=== PATIENT | female | born 2000 | race Caucasian/White ===

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

== ENCOUNTER 2019-02-15 19:13 | Emergency (ER) | payer MEDICAID, OTHER ==
[~2019-02-15] VITALS: Ht 165.1 cm; Wt 63.5 kg
--- NOTE | 2019-02-15 19:40 | NUR ---
PT C/O LEFT HIP PAIN AMBULATORY WITH STABLE GAIT ABLE TO PROVIDE URINE SAMPLE PT NAD SIDERAILSX2 UP, BED AT LOWEST POSITION
[2019-02-15 20:03] LABS: *BILIRUBIN,URIN NEGATIVE (NEGATIVE); *CLARITY,URINE SLIGHTLY CLOUDY (CLEAR); *COLOR,URINE YELLOW (YELLOW); *KETONES,URINE NEGATIVE (NEGATIVE); *UROBILINOGEN,URINE 0.2 E.U./dl (NORMAL); LEUKOCYTE ESTERASE ,URINE TRACE (NEGATIVE); NITRITE, URINE NEGATIVE (NEGATIVE); PH,URINE 7.5 (5.0-8.0); UGLUCOSE NEGATIVE (NEGATIVE)
[2019-02-15 20:09] LABS: *BLOOD, URINE TRACE (NEGATIVE); *URINE HCG, QUAL NEGATIVE (NEGATIVE)
[2019-02-15 20:19] LABS: RBC,URINE 0-3 /HPF (0-3)
[2019-02-15 20:20] LABS: BACTERIA,URINE FEW /HPF (NONE SEEN); SQUAMOUS EPITHELIAL CELL,UR MANY /HPF (NONE SEEN)
--- NOTE | 2019-02-15 20:57 | NUR ---
Patient discharged to home in stable conditon. Written and verbal after care instructions given. Patient verbalizes understanding of instructions. ambulatory w/ stable gait all belongings w/ pt
[2019-02-15 21:50] VITALS: BP 109/72
== END 2019-02-15 20:55 | disposition home or self-care (01) ==
LOC: ER 19:18
DX: S70.02XA Contusion of left hip, initial encounter (principal); Z90.49 Acquired absence of other specified parts of digestive tract; W18.39XA Other fall on same level, initial encounter; Y93.89 Activity, other specified; Y92.89 Other specified places as the place of occurrence of the external cause; Y99.8 Other external cause status
CPT/HCPCS: 36415; 72170; 84703; A4663

== ENCOUNTER 2019-04-20 17:55 | Inpatient (IN) | payer OTHER ==
[~2019-04-20] VITALS: Ht 165.1 cm; Wt 64.0 kg
--- NOTE | 2019-04-20 18:00 | NUR ---
PATIENT HERE WITH HER BOYFRIEND. SHE IS HAVING CHILLS, BODY ACHES, SHE IS TACHYCARDIC. PLACED ON A MONITOR. IV PLACED.
[2019-04-20] MEDS ORDERED: IV NS 1000 ML 1,000 ML IV ONE (18:45)
[2019-04-20] MEDS ORDERED: METOCLOPRAMIDE HCL 10 MG/2 ML VIAL IV ONE (18:45)
[2019-04-20] MEDS ORDERED: IV NORMAL SALINE 1000 ML BAG IV ONE (18:45)
[2019-04-20] MEDS ORDERED: ACETAMINOPHEN ES 500 MG TABLET PO ONE (18:45)
[2019-04-20] MEDS ORDERED: ACETAMINOPHEN ES 500 MG TABLET ONE (18:52)
[2019-04-20] MEDS ORDERED: diphenhydrAMINE 50 MG/1 ML VIAL ONE (18:52)
[2019-04-20] MEDS ORDERED: METOCLOPRAMIDE HCL 10 MG/2 ML VIAL ONE (18:53)
[2019-04-20 18:57] LABS: BASOPHILS % (AUTO) 0.5 % (0.0-2.0); EOSINOPHILS # (AUTO) 0.1 K/uL (0.0-0.7); EOSINOPHILS % (AUTO) 0.8 % (0.0-7.0); HEMATOCRIT 38.8 % (31.2-41.9); HEMOGLOBIN 12.7 g/dL (10.9-14.3); LYMPHOCYTES # (AUTO) 0.7 K/uL (20.0-40.0); LYMPHOCYTES % (AUTO) 8.6 % (20.5-74.5); MEAN CORPUSCULAR HEMOGLOBIN 26.7 uug (24.7-32.8); MEAN CORPUSCULAR HGB CONC 33 g/dL (32.3-35.6); MEAN CORPUSCULAR VOLUME 81.9 fL (75.5-95.3); MONOCYTES # (AUTO) 0.7 K/uL (2.0-10.0); MONOCYTES % (AUTO) 9.1 % (0-11); NEUTROPHILS # (AUTO) 6.7 K/uL (1.8-8.9); PLATELET COUNT (AUTO) 263 K/uL (179-408); RED BLOOD CELL COUNT(AUTO) 4.74 MIL/uL (3.63-4.92); WHITE BLOOD COUNT (AUTO) 8.2 K/uL (3.8-11.8)
[2019-04-20] MEDS: diphenhydrAMINE 25 MG CAP PO ONE ×2 (19:01→19:09)
[2019-04-20 19:03] LABS: CREATININE 0.8 mg/dL (0.6-1.3); POTASSIUM 3.7 mmol/L (3.5-5.1)
[2019-04-20 19:05] LABS: *BILIRUBIN,URIN NEGATIVE (NEGATIVE); *BLOOD, URINE 2+ (NEGATIVE); *KETONES,URINE 2+ (NEGATIVE); *UROBILINOGEN,URINE 0.2 E.U./dl (NORMAL); LEUKOCYTE ESTERASE ,URINE TRACE (NEGATIVE); NITRITE, URINE NEGATIVE (NEGATIVE); UGLUCOSE NEGATIVE (NEGATIVE)
[2019-04-20 19:07] LABS: *CLARITY,URINE HAZY (CLEAR); *COLOR,URINE LIGHT YELLOW (YELLOW)
[2019-04-20 19:09] LABS: BILIRUBIN,DIRECT 0.1 mg/dL (0.0-0.2); BILIRUBIN,TOTAL 0.7 mg/dL (0.2-1.0); TOTAL PROTEIN, SERUM 8.5 g/dL (6.4-8.2)
[2019-04-20 19:09] LABS: *URINE HCG, QUAL NEGATIVE (NEGATIVE)
[2019-04-20 19:11] LABS: BACTERIA,URINE FEW /HPF (NONE SEEN); SQUAMOUS EPITHELIAL CELL,UR FEW /HPF (NONE SEEN)
--- NOTE | 2019-04-20 19:13 | NUR ---
HAND OFF REPORT GIVEN TO NIGHT RN
--- NOTE | 2019-04-20 19:18 | NUR ---
Assumed care of patient from day shift RN Christinei.
[2019-04-20] MEDS ORDERED: OSELTAMIVIR PHOSPHATE 75 MG CAPSULE ONE (19:38)
--- NOTE | 2019-04-20 19:38 | NUR ---
Dr Milligan at bedside.
[2019-04-20] MEDS ORDERED: VANCOMYCIN 1G/D5W 200 ML PIGGYBACK IV ONE (19:45)
[2019-04-20] MEDS ORDERED: OSELTAMIVIR PHOSPHATE 75 MG CAPSULE PO ONE (19:45)
[2019-04-20] MEDS ORDERED: PIPERACILLIN SODIUM/TAZOBACTAM 3.375 G in IV DEXTROSE 5% 50 ML IV ONE (19:45)
[2019-04-20] MEDS ORDERED: PIPERACILLIN/TAZOBACTAM/D5W 50 ML IV ONE (19:56)
[2019-04-20] MEDS ORDERED: VANCOMYCIN IV 200 ML ONE (20:03)
--- NOTE | 2019-04-20 20:11 | NUR ---
Patient refused to US. Dr Chel lawrence.
[2019-04-20] MEDS ORDERED: IV LACTATED RINGERS SOLUTION 1,000 ML IV ONE (20:15)
[2019-04-20] MEDS ORDERED: ONDANSETRON 4 MG/2 ML VIAL IV ONE (20:15)
--- NOTE | 2019-04-20 20:15 | NUR ---
Epic panel call placed, spoke to Sharif stated she will get a hold of Dr. Helton for admitting.
[2019-04-20] MEDS ORDERED: ONDANSETRON 4 MG/2 ML VIAL ONE (20:17)
--- NOTE | 2019-04-20 20:39 | NUR ---
Dr Milligan on panel call with Dr. Helton. Patient accepted for admission to tele, Dx Sepsis.
[2019-04-20] MEDS ORDERED: IOHEXOL 300MG/ML 100 ML INFUS..BTL ONE (20:55)
[2019-04-20] MEDS ORDERED: IV NORMAL SALINE 0 ML IV ONE (20:55)
[2019-04-20] MEDS ORDERED: SWABABLE VALVE TRANSFER SET EA MC ONE (20:55)
--- NOTE | 2019-04-20 21:15 | NUR ---
REPORT GIVEN TO DIRECTOR OF AGRONOMY NEYMAR REGARDING PATIENT CONDITION AND STATES UNDERSTANDING. PATIENT TO BE ADMITTED TO TELE FLOOR ROOM 315 UNDER Jesus HARPER
--- NOTE | 2019-04-20 21:33 | NUR ---
PATIENT REFUSING CT. DR GRIMM AWARE AND ALSO INFORMED CAMERON BLACKOMN.
--- NOTE | 2019-04-20 21:35 | NUR ---
PATIENT TRANSPORTED VIA GURNEY TO TELE FLOOR BY JULIANA MODI ON ROOM 315.
[2019-04-20 21:50] VITALS: BP 114/52
[2019-04-20] MEDS ORDERED: ONDANSETRON 4 MG/2 ML VIAL IV PRN (22:00)
[2019-04-20] MEDS ORDERED: Z GUARD REMEDY PASTE 57 GM TUBE TOP PRN (22:00)
[2019-04-20] MEDS ORDERED: ACETAMINOPHEN 325 MG TABLET PO PRN (22:00)
[2019-04-20] MEDS: IBUPROFEN 400 MG TABLET PO PRN (22:28)
[2019-04-20] MEDS: IV NS 1000 ML 1,000 ML IV PRN (22:28)
[2019-04-21] MEDS ORDERED: VANCOMYCIN IV 500 MG in IV DEXTROSE 5% 100 ML IV ONE ×2
[2019-04-21] MEDS ORDERED: VANCOMYCIN HCL 500 MG VIAL ONE (00:10)
[2019-04-21] MEDS ORDERED: PIPERACILLIN SODIUM/TAZO 3.375 GM VIAL ONE (00:10)
[2019-04-21 00:16] VITALS: BP 102/41
--- NOTE | 2019-04-21 01:00 | NUR ---
PT TO DISCHARGE.WAITING FOR ORDER. PT IN NO ACUTE DISTRESS. SAFETY ND COMFORT PROVIDED. WILL CONTINUE TO MONITOR. Addendum: 04/21/19 at 1633 by VENITA WALLACE RN WRONG TIME DOCUMENTATION
[2019-04-21] MEDS ORDERED: PIPERACILLIN SODIUM/TAZOBACTAM 3.375 G in IV DEXTROSE 5% 50 ML IV ONE (02:00)
[2019-04-21 04:10] VITALS: BP 96/40
--- NOTE | 2019-04-21 05:52 | NUR ---
Patient complained of headache when she arrived at the room, it was relieved by ibuprofen PO. Attended all needs. Ensured safety and comfort. No other complaints were made throughout the shift. Patient refused CT Scan of abdomen/pelvis, Dr. Valdez Helton made aware last night. No other untoward events noted. Will endorse accordingly.
[2019-04-21 06:32] LABS: BASOPHILS % (AUTO) 0.9 % (0.0-2.0); EOSINOPHILS % (AUTO) 1.2 % (0.0-7.0); HEMATOCRIT 32.6 % (31.2-41.9); HEMOGLOBIN 10.7 g/dL (10.9-14.3); LYMPHOCYTES # (AUTO) 0.5 K/uL (20.0-40.0); LYMPHOCYTES % (AUTO) 12.2 % (20.5-74.5); MEAN CORPUSCULAR HEMOGLOBIN 26.6 uug (24.7-32.8); MEAN CORPUSCULAR HGB CONC 33 g/dL (32.3-35.6); MEAN CORPUSCULAR VOLUME 81.3 fL (75.5-95.3); MONOCYTES # (AUTO) 0.4 K/uL (2.0-10.0); MONOCYTES % (AUTO) 10.4 % (0-11); NEUTROPHILS % (AUTO) 75.3 % (31.5-64.5); PLATELET COUNT (AUTO) 192 K/uL (179-408); RED BLOOD CELL COUNT(AUTO) 4.02 MIL/uL (3.63-4.92)
[2019-04-21 06:39] LABS: THYROID STIMULATING HORMONE 4.076 mIU/mL (0.358-3.740)
[2019-04-21 06:45] LABS: ALANINE AMINOTRANSFERASE 15 U/L (14-59); ALKALINE PHOSPHATASE 41 U/L (50-136); ASPARTATE AMINOTRANSFERASE 14 U/L (15-37); BILIRUBIN,TOTAL 0.5 mg/dL (0.2-1.0); CARBON DIOXIDE 24 mmol/L (21-32); CHLORIDE 110 mmol/L (98-107); CREATININE 0.7 mg/dL (0.6-1.3); GLUCOSE 87 mg/dL (74-106); HDL CHOLESTEROL 43 mg/dL (40-60); MAGNESIUM 1.8 mg/dL (1.8-2.4); PHOSPHOROUS 4.9 mg/dL (2.5-4.9); POTASSIUM 3.8 mmol/L (3.5-5.1); TRIGLYCERIDES < 15 MG/DL (30-150); UREA NITROGEN, BLOOD 9 mg/dL (7-18)
[2019-04-21 07:15] LABS: CHOLESTEROL 105 mg/dL (<200)
[2019-04-21] MEDS: IBUPROFEN 400 MG TABLET PO PRN (07:39)
[2019-04-21] MEDS: IV NS 1000 ML 1,000 ML IV PRN (07:48)
--- NOTE | 2019-04-21 09:31 | NUR ---
Clinical Pharmacy Note: Vancomycin Dosing per Pharmacy Subjective: Vancomycin IV to start on this 19 yo female patient for severe sepsis Objective: BUN 9/Scr 0.7 WBC 4.2 Temperature 97.9 ht 165 cm wt 64 kg Assessment/Plan: patient received vanco 1gm IV x1 in ED on 04/20 at 2030 & night pharmacy also ordered additional 500mg at 0100 on 04/21. Will start vancomycin 1000mg IVPB Q10hr for a predicted vancomycin steady state trough level of 15 mcg/ml. 1st dose today at 1100. Will draw a vancomycin trough level prior to the 4th dose of vancomycin (not yet ordered). Will monitor renal function & adjust the dose if needed. Will follow daily.
[2019-04-21] MEDS ORDERED: FERR325T28 PO (09:35)
[2019-04-21] MEDS ORDERED: PIPERACILLIN SODIUM/TAZOBACTAM 4.5 G in IV DEXTROSE 5% 50 ML IV SCH (10:00)
[2019-04-21] MEDS ORDERED: VANCOMYCIN IV 1,000 MG in IV DEXTROSE 5% 250 ML IV SCH (11:00)
[2019-04-21 12:30] VITALS: BP 111/49
--- NOTE | 2019-04-21 13:00 | NUR ---
PT TO DISCHARGE.WAITING FOR ORDER. PT IN NO ACUTE DISTRESS. SAFETY ND COMFORT PROVIDED. WILL CONTINUE TO MONITOR.
--- NOTE | 2019-04-21 16:10 | NUR ---
PT DISCHARGE. PT GIVEN DISCHARGE INSTRUCTION. PT UNDERSTAND IT WELL. PT DISCHARGE PACKET GIVEN. PT ID BAND AND IV REMOVED. TOLDF THE PT AND FATHER THAT THE DOCTOR WILL DO ELECTRONIC PRESCRIPTION SO JUST WAIT FOR. CALL THE PHARMACY FIRST BEFORE GOING . PT IN NO ACUTE DISTRESS. PT STABLE.
[2019-04-21] MEDS ORDERED: NITR100C6 PO (16:57)
== END 2019-04-21 16:10 | disposition home or self-care (01) | DRG 720 ==
LOC: ER 17:56 → TELE3 21:21 → MEDSURG3 04-21 10:55
PROVIDERS: ADMIT Nurse Practitioner Acute Care; ATTEND Internal Medicine
DX: A41.9 Sepsis, unspecified organism (principal); D50.9 Iron deficiency anemia, unspecified; N39.0 Urinary tract infection, site not specified; Z90.49 Acquired absence of other specified parts of digestive tract; Z86.39 Personal history of other endocrine, nutritional and metabolic disease
CPT/HCPCS: 36415; 71045; 83605; 83690; 83735; 84100; 84443; 84703; 85025; 85730; 87040; 87086; 87400; 93005; A4663; A9150; G0378; J1200; J2405; J2543; J2765; J3370; J7030; J7050; J7060; J7120; Q9967